=== PATIENT | male | born 1965 | race Caucasian/White ===

== ENCOUNTER 2022-08-25 08:35 | Emergency (ER) | payer BC, OTHER ==
[2022-08-25] MEDS ORDERED: KETOROLAC 30 MG/ML INJ ONE (09:03)
--- NOTE | 2022-08-25 09:58 | RAD REPORT ---
EXAM DESCRIPTION: Shoulder Right 2 View - 08/25/2022 9:24 am CLINICAL HISTORY: shoulder pain COMPARISON: None available TECHNIQUE: Internal and external rotation views of the right shoulder were obtained. FINDINGS: There is no fracture or dislocation. AC joint is normal in appearance. No acute or suspici ous findings. IMPRESSION: Negative two-view right shoulder examination.
[2022-08-25] MEDS ORDERED: MORPHINE 4 MG/ML SYR ONE (10:41)
[2022-08-25] MEDS ORDERED: dexAMETHasone 10 MG/ML VIAL ONE (10:41)
--- NOTE | 2022-08-25 10:52 | ER ---
Nurse's Notes [facility] Name: Ryan Escalona Age: 56 yrs Sex: Male : 1965 Arrival Date: 08/25/2022 Time: 08:35 Bed 13 Private MD: Diagnosis: Pain in right shoulder Presentation: 08/25 08:50 Chief complaint: Patient states: R arm pain that has been ongoing x 1 month. No known ss injury. Coronavirus screen: Client denies travel out of the [place] in the last 14 days. Ebola Screen: Patient denies exposure to infectious person. Patient denies travel to an Ebola-affected area in the 21 days before illness onset. Initial Sepsis Screen: Does the patient meet any 2 criteria? No. Patient's initial sepsis screen is negative. Does the patient have a suspected source of infection? No. Patient's initial sepsis screen is negative. Risk Assessment: Do you want to hurt yourself or someone else? Patient reports no desire to harm self or others. Onset of symptoms was July 26, 2022. 08:50 Method Of Arrival: Ambulatory ss 08:50 Acuity: JOSY 3 ss Historical: - Allergies: 08:52 No Known Allergies; ss - Home Meds: 08:52 None [Active]; ss - PMHx: 08:52 None; ss - PSHx: 08:52 BACK SX; ss - Immunization history:: Client reports having NOT received the Covid vaccine. - Social history:: Smoking status: Patient reports the use of cigarette tobacco products, smokes one-half pack cigarettes per day. Screenin:00 [facility] ED Fall Risk Assessment (Adult) History of falling in the last 3 months, kc6 including since admission No falls in past 3 months (0 pts) Confusion or Disorientation No (0 pts) Intoxicated or Sedated No (0 pts) Impaired Gait No (0 pts) Mobility Assist Device Used No (0 pt) Altered Elimination No (0 pt) Score/Fall Risk Level 0 - 2 = Low Risk Oriented to surroundings, Maintained a safe environment, Educated pt \T\ family on fall prevention, incl call for assistance when getting out of bed, Assessed \T\ reinforced patient's understanding of fall precautions, Hourly rounding (assess needs \T\ fall precautionary measures) done. Abuse screen: Denies threats or abuse. Denies injuries from another. Nutritional screening: No deficits noted. Tuberculosis screening: No symptoms or risk factors identified. Assessment: 09:00 General: Appears in no apparent distress. comfortable, Behavior is calm, cooperative, kc6 appropriate for age. Pain: Complains of pain in right arm. Neuro: Level of Consciousness is awake, alert, obeys commands, Oriented to person, place, time, situation, Appropriate for age. Cardiovascular: Capillary refill < 3 seconds. Respiratory: Airway is patent Trachea midline Respiratory effort is even, unlabored, Respiratory pattern is regular, symmetrical. GI: No signs and/or symptoms were reported involving the gastrointestinal system. : No signs and/or symptoms were reported regarding the genitourinary system. EENT: No signs and/or symptoms were reported regarding the EENT system. Derm: No signs and/or symptoms reported regarding the dermatologic system. Skin is intact, Skin is pink, warm \T\ dry. Musculoskeletal: No signs and/or symptoms reported regarding the musculoskeletal system. Circulation, motion, and sensation intact. Capillary refill < 3 seconds, Range of motion: intact in all extremities. 10:00 Reassessment: Patient appears in no apparent distress at this time. No changes from kc6 previously documented assessment. Patient and/or family updated on plan of care and expected duration. Pain level reassessed. Patient is alert, oriented x 3, equal unlabored respirations, skin warm/dry/pink. Vital Signs: 08:50 Pulse 67; Resp 17; Pulse Ox 100% on R/A; Weight 77.11 kg; Height 6 ft. 2 in. ; Pain ss 10/10; 08:53 BP 180 / 110; Temp 98; ss 09:10 BP 148 / 109; Pulse 69; Resp 18 S; Pulse Ox 100% on R/A; kc6 10:03 BP 164 / 100; Pulse 73; Resp 17 S; Pulse Ox 99% on R/A; kc6 08:50 Body Mass Index 21.83 (77.11 kg, 187.96 cm) ss 08:50 Pain Scale: Adult ss ED Course: 08:37 Patient arrived in ED. ts1 08:37 Floyd Arreola PA is PHCP. [facility] 08:38 Bar Rangel MD is Attending Physician. [facility] 08:51 Patient has correct armband on for positive identification. Placed in gown. Bed in low mm9 position. Call light in reach. Side rails up X 1. Warm blanket given. Client placed on continuous cardiac and pulse oximetry monitoring. NIBP monitoring applied. panel monitor on. Pulse ox on. NIBP on. 08:52 Triage completed. 08:52 Arm band placed on right wrist. 08:56 Jennifer Robins, RN is Primary Nurse. kc6 09:26 Shoulder Right (2 View) XRAY In Process Unspecified. EDMS 10:51 Nitish Oconnor MD is Referral Physician. [facility] 10:57 No provider procedures requiring assistance completed. Patient did not have IV access kc6 during this emergency room visit. Administered Medications: 08:58 Drug: Ketorolac IM 30 mg Route: IM; Site: right gluteus; 10:03 Follow up: Response: No adverse reaction kc6 10:41 Drug: morphine IM 4 mg Route: IM; Site: right deltoid; kc6 10:57 Follow up: Response: No adverse reaction; Pain is decreased; RASS: Alert and Calm (0) kc6 10:41 Drug: Dexamethasone IM 10 mg Route: IM; Site: left deltoid; kc6 10:57 Follow up: Response: No adverse reaction kc6 Medication: 10:58 VIS not applicable for this client. kc6 Outcome: 10:52 Discharge ordered by . [facility] 10:57 Discharged to home ambulatory. kc6 10:57 Condition: improved 10:57 Discharge instructions given to patient, Instructed on discharge instructions, follow up and referral plans. medication usage, Demonstrated understanding of instructions, follow-up care, medications, Prescriptions given X 3. 10:58 Patient left the ED. kc6 Signatures: Dispatcher [employer] EDMS Floyd Arreola PA PA jmm Blanchard, Shelby, RN RN Jennifer Robins RN RN Gemini Nicole mm9 Isabella Lyons PAS PAS ts1
--- NOTE | 2022-08-25 10:53 | EDPHYS ---
Physician Documentation [facility] Name: Ryan Escalona Age: 56 yrs Sex: Male : 1965 Arrival Date: 08/25/2022 Time: 08:35 Bed 13 Private MD: ED Physician Bar Rangel HPI: 08/25 08:44 This 56 yrs old Male presents to ER via Ambulatory with complaints of Arm Pain, jmm Shoulder Pain. 08:44 The patient or guardian complains of pain. Onset: The symptoms/episode began/occurred jmm gradually, 1 month(s) ago. Modifying factors: The symptoms are alleviated by nothing. the symptoms are aggravated by movement. This is a 56 year old male with a history of htn that presents to [facility] ED with complaints of worsening right shoulder pain beginning 2 weeks ago. Denies injury. . Historical: - Allergies: 08:52 No Known Allergies; ss - Home Meds: 08:52 None [Active]; ss - PMHx: 08:52 None; ss - PSHx: 08:52 BACK SX; ss - Immunization history:: Client reports having NOT received the Covid vaccine. - Social history:: Smoking status: Patient reports the use of cigarette tobacco products, smokes one-half pack cigarettes per day. ROS: 08:44 Constitutional: Negative for fever, chills, and weight loss, Respiratory: Negative for jmm shortness of breath, cough, wheezing, and pleuritic chest pain. 08:44 MS/extremity: Positive for pain. 08:44 All other systems are negative. Exam: 08:44 Constitutional: This is a well developed, well nourished patient who is awake, alert, jmm and in no acute distress. Head/Face: atraumatic. Eyes: EOMI, no conjunctival erythema appreciated ENT: Moist Mucus Membranes Neck: Trachea midline, Supple Chest/axilla: Normal chest wall appearance and motion. Cardiovascular: Regular rate and rhythm. 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 08:44 Skin: Appearance: Color: normal in color. 08:44 Neuro: Orientation: is normal, Mentation: is normal, Memory: is normal. 08:44 Psych: Behavior/mood is pleasant, cooperative. Vital Signs: 08:50 Pulse 67; Resp 17; Pulse Ox 100% on R/A; Weight 77.11 kg; Height 6 ft. 2 in. ; Pain ss 10/10; 08:53 BP 180 / 110; Temp 98; ss 09:10 BP 148 / 109; Pulse 69; Resp 18 S; Pulse Ox 100% on R/A; kc6 10:03 BP 164 / 100; Pulse 73; Resp 17 S; Pulse Ox 99% on R/A; kc6 08:50 Body Mass Index 21.83 (77.11 kg, 187.96 cm) ss 08:50 Pain Scale: Adult ss MDM: 08:44 Patient medically screened. [facility] 10:48 Data reviewed: vital signs, nurses notes. I considered the following discharge jmm prescriptions or medication management in the emergency department Medications were administered in the Emergency Department. See MAR. Counseling: I had a detailed discussion with the patient and/or guardian regarding: the historical points, exam findings, and any diagnostic results supporting the discharge/admit diagnosis, radiology results, the need for outpatient follow up, to return to the emergency department if symptoms worsen or persist or if there are any questions or concerns that arise at home. 08/25 08:49 Order name: Shoulder Right (2 View) XRAY; Complete Time: 09:59 [facility] Administered Medications: 08:58 Drug: Ketorolac IM 30 mg Route: IM; Site: right gluteus; ss 10:03 Follow up: Response: No adverse reaction kc6 10:41 Drug: morphine IM 4 mg Route: IM; Site: right deltoid; kc6 10:57 Follow up: Response: No adverse reaction; Pain is decreased; RASS: Alert and Calm (0) kc6 10:41 Drug: Dexamethasone IM 10 mg Route: IM; Site: left deltoid; kc6 10:57 Follow up: Response: No adverse reaction 6 Disposition: 11:10 Co-signature as Attending Physician, Bar Rangel MD I reviewed the patient's care rn provided by the Advanced Practice Provider and agree with the diagnosis and treatment plan. Disposition Summary: 08/25/22 10:52 Discharge Ordered Location: Home [facility] Condition: Stable jmm Diagnosis - Pain in right shoulder jmm Followup: jmm - With: Nitish Oconnor MD - When: 2 - 3 days - Reason: Recheck today's complaints, Continuance of care, Re-evaluation by your physician Discharge Instructions: - Discharge Summary Sheet [facility] - Shoulder Pain [facility] Forms: - Medication Reconciliation Form [facility] - Thank You Letter [facility] - Antibiotic Education [facility] - Prescription Opioid Use [facility] - [email or web address] [facility] Prescriptions: - Prednisone 20 mg Oral Tablet - take 3 tablets by ORAL route once daily for 5 days; 15 tablet; Refills: 0, [facility] Product Selection Permitted - Zanaflex 4 mg Oral Tablet - take 1 tablet by ORAL route every 8 hours As needed; 20 tablet; Refills: 0, [facility] Product Selection Permitted - Diclofenac Sodium 75 mg Oral Tablet Sustained Release - take 1 tablet by ORAL route 2 times per day; 30 tablet; Refills: 0, Product [facility] Selection Permitted Signatures: Dispatcher [employer] EDFloyd Burns PA PA jmm Nieto, Roman, MD MD rn Blanchard, Shelby, RN RN Jennifer Oneal RN RN kc6
[2022-08-25 11:04] VITALS: TEMP 98
[2022-08-25 11:09] VITALS: BP 164/100; O2SAT 99
== END 2022-08-25 10:58 | disposition home or self-care (01) ==
LOC: ER 08:35
DX: M25.511 Pain in right shoulder (principal); F17.210 Nicotine dependence, cigarettes, uncomplicated
CPT/HCPCS: 73030; 96372; 99285; J1100

== ENCOUNTER 2022-10-11 17:12 | Inpatient (IN) | payer OTHER ==
--- OUTSIDE RECORDS SUMMARY | 2022-10-11 17:45 | XMS REPORT | Continuity of Care Document ---
:1965 Author Organization [facility] t Address [address] [place] [address]. [address] [place] [address] Care Team Providers Name Role Phone ALY LOGAN Primary Care Physician Unavailable Lydia Herrera DO Attending Clinician LYDIA HERRERA Attending Clinician Unavailable GEE CALLEJAS Attending Clinician Unavailable LYDIA HERRERA Admitting Clinician Unavailable GEE CALLEJAS Admitting Clinician Unavailable Payers Payer Name Policy Type Policy Number Effective Date Expiration Date S ource Problems Condition Condition Condition Status Onset Resolution Last Treating Co mments Source Name Details Category Date Date Treatment Clinician Date Chest pain Chest pain Disease Active U nivers 9-20 ity of 00:00: [address] Hypertensi Hypertensi Disease Active U nivers on on [facility] Allergies, Adverse Reactions, Alerts Allergy Allergy Status Severity Reaction(s) Onset Inactive Treating Comm ents Source Name Type Date Date Clinician NO KNOWN Drug Active Univers ALLERGIE Class ity of [facility] Social History Social Habit Start Date Stop Date Quantity Comments Source Sex Assigned At [birth year] [facility] [place] 00:00:00 00:00:00 Medical Branch Smoking Status Start Date Stop Date Source Current every day smoker 2019-06-20 00:00:00 [facility] Medications Ordered Filled Start Stop Current Ordering Indication Dosage Frequency Signature Comments Components Source Medication Medication Date Date Medication? Clinician (SIG) Name Name ziprasidone 2020- No 20mg 20 mg, Uni vers (GEODON) 11-01 Intramuscu ity of injection 23:30: 22:29 lar[place]CE[place] 20 mg 00 :00 1 dose, Medical [facility] 11/01/20 Branch at 1830, DANI ziprasidone 2020- No 20mg 20 mg, [facility] vers (GEODON) 11-01 Intramuscu ity of injection 23:30: 22:29 lar, ONCE, [place] 20 mg 00 :00 1 dose, Medical [facility] 11/01/20 Branch at 1830, DANI diphenhydrA 2020- No 50mg 50 mg, [facility] vers MINE 11-01 Intramuscu ity of (BENADRYL) 21:30: 21:21 lar, ONCE, [place] injection 00 :00 1 dose, Medical 50 mg [facility] 11/01/20 Branch at 1630, STAT LORazepam 2020- No 2mg 2 mg, Univer s (ATIVAN) 11-01 Intramuscu ity of injection 2 21:30: 21:21 lar, ONCE, [place] mg 00 :00 1 dose, Medical 11/01/20 Branch at 1630, STAT haloperidol 2020- No 5mg 5 mg, Univ ers lactate 11-01 Intramuscu ity o f (HALDOL) 21:30: 21:21 [place] 5 00 :00 1 dose, Medic al mg e 11/01/20 Branch at 1630, STAT
Ch emical Restraint: Yes diphenhydrA 2020- No 50mg 50 mg, Uni vers MINE 11-01 Intramuscu ity of (BENADRYL) 21:30: 21:21 lar, ONCE, [place] injection 00 :00 1 dose, Medical 50 mg e 11/01/20 Branch at 1630, STAT LORazepam 2020- No 2mg 2 mg, Univer s (ATIVAN) 11-01 Intramuscu ity of injection 2 21:30: 21:21 lar, ONCE, [place] mg 00 :00 1 dose, Medical 11/01/20 Branch at 1630, STAT haloperidol 2020- No 5mg 5 mg, [facility] ers lactate 11-01 Intramuscu ity o f (HALDOL) 21:30: 21:21 [place] 5 00 :00 1 dose, Medic al mg [facility] 11/01/20 Branch at 1630, STAT
Ch emical Restraint: Yes OLANZapine 2020- No 10mg 10 mg, [facility] ers ZYDIS 11-01 Oral, ity of (ZyPREXA 18:45: 18:45 ONCE, 1 [place] ZYDIS) 00 :00 dose, [facility] Medical disintegrat 11/01/[address] [facility] ing tablet 1345, DANI 10 mg OLANZapine 2020- No 10mg 10 mg, [facility] ZYDIS 11-01 Oral, ity of (ZyPREXA 18:45: 18:45 ONCE, 1 [place] ZYDIS) 00 :00 dose, [facility] Medical disintegrat 11/01/[address] [facility] ing tablet 1345, DANI 10 mg hydroCHLORO 2020-0 Yes [id number] 25mg Take 1 Univers thiazide 25 4-26 tablet by ity of mg tablet 00:00: mouth [place] [address] every Medical morning. Branch hydroCHLORO 0 Yes [id number] 25mg Take 1 Univers thiazide 25 4-26 tablet by ity of mg tablet 00:00: mouth [place] [address] every Medical morning. Branch Vital Signs Vital Name Observation Time Observation Value Comments Source Systolic blood 2020-11-02 03:00:00 120 mm[Hg] [facility] Diastolic blood 2020-11-02 03:00:00 90 mm[Hg] [facility] Heart rate 2020-11-02 03:00:00 85 /[facility] Respiratory rate 2020-11-02 03:00:00 20 /min [facility] Oxygen saturation in 2020-11-02 03:00:00 100 /min [facility] Arterial blood by [facility] Pulse oximetry Branch Body temperature 2020-11-01 17:26:00 36.67 Jennifer [facility] Body weight 2020-11-01 17:26:00 79.379 kg [facility] BMI 2020-11-01 17:26:00 22.47 kg/m2 [facility] Procedures Procedure Date / Time Performing Clinician Source Performed URINE DRUG (IMMUNOASSAY) 2020-11-01 23:34:00 Lydia Herrera [facility] - COMPREHENSIVE DRUG Medical [facility] SCREEN URINALYSIS 2020-11-01 23:33:00 [facility] AMMONIA, PLASMA 2020-11-01 23:22:00 [facility] COVID-19 (ID NOW RAPID 2020-11-01 22:12:00 [facility] CT HEAD WO CONTRAST 2020-11-01 18:29:05 Lydia Herrera [facility] XR CHEST 1 VW 2020-11-01 17:59:34 [facility] CBC WITH DIFF 2020-11-01 17:42:00 [facility] COMP. METABOLIC PANEL 2020-11-01 17:41:00 Lydia Herrera [facility] ([id number]) [facility] SALICYLATE 2020-11-01 17:41:00 [facility] ETHANOL 2020-11-01 17:41:00 [facility] Encounters Start End Encounter Admission Attending Care Care Encounter Source Date/Time Date/Time Type Type Clinicians Facility Department ID 2022-10-11 2022-10-11 Outpatient SFA SFA [id number] [place] 15:58:56 15:58:56 [id number] [place] 2022-09-29 2022-09-29 Outpatient SFA SFA [id number] 11:15:14 11:15:14 [id number] F [place] 2022-09-12 2022-09-12 Outpatient SFA SFA [id number] [place] 08:04:11 08:04:11 [id number] F [place] 2022-09-05 2022-09-05 Outpatient SFA SFA [place] 17:03:03 17:03:03 [id number] F [place] 2022-08-30 2022-08-30 Outpatient [facility] Bran 08:52:02 08:52:02 [id number] F [place] 2022-08-29 2022-08-29 Outpatient [facility] Bran 14:57:18 14:57:18 [id number] F [place] 2020-11-01 2020-11-01 Emergency [facility] [id number] Univers 12:25:00 22:30:00 Lydia Falk [id number] i ty [facility] [id number] [facility] [id number] [address] 2020-11-01 2020-11-01 Emergency X [facility] ERT [id number] Univers 12:25:00 22:30:00 LYDIA paez [facility] 2019-06-20 2019-06-21 Emergency [facility] [id number] Univers 23:03:55 01:11:00 GEE jeannine [facility] Results Test Description Test Time Test Comments Results Result Comments Source HEMOGLOBIN A1c 2022-08-30 06:54:47 Test Item Value Reference Range Interpretation Comme nts HEMOGLOBIN A1c (test code = 94418) 5.3 % 4.2-5.6 VITAMIN D, 25 [id number] 06:33:05 Test Item Value Reference Range Interpretation Comments VITAMIN D, 25 20 NG/ML SEE BELOW L EFFECTIVE 03/05/2022, [place] (test code PLEASE NOTE NE W METHODOLOGY = 4958) IS [employer] EMILUMINESCENCE BINDING ASSAY. NOTE: 25-HYDROXYVITAM IN D ASSAY INCLUDES 25-HYD ROXYVITAMIN D2 AND D3. I NTERPRETIVE RANGES PED IATRIC (<17 YEARS) . . . . . . . . . . . NG/ML 20-100ADU LT: INSUFFICIENT . . . . . . . . . . . . . . NG/ML <20 SUBOP TIMAL . . . . . . . . . . . . . . . NG/ML 20-29 OPTIMAL . . . . . . . . . . . . . . . . . NG/ML 30-100 TSH, THIRD [id number] 06:32:16 Test Item Value Reference Range Interpretation Comments TSH, THIRD 0.182 UIU/ML 0.400-4.100 L UNLESS OTHERWI SE GENERATION (test INDICATED, ALL TESTING code = 2821) PERFORMED AT [facility] [place] [facility] [place] [address] [facility] ENCINAS DIRECTOR: Prieto VASQUEZ AHSAN NUMBER [id number] CAP ACCREDITATION N O. [id number] COMPREHENSIVE METABOLIC [id number] 04:40:53 Test Item Value Reference Range Interpretation Comments GLUCOSE (test code = 118 MG/DL 70-99 H 2216) BUN (test code = 17 MG/DL 6-20 2207) CREATININE (test 0.98 MG/DL 0.80-1.40 code = 2214) eGFR (2020 CKD-EPI) 91 ML/MIN/1.73 >60 (test code = 75371) CALC BUN/CREAT (test 17 RATIO 6-28 code = 2235) SODIUM (test code = 140 MEQ/L 547-761 3555) POTASSIUM (test code 4.2 MEQ/L 3.5-5.4 = 2227) CHLORIDE (test code 102 MEQ/L 95-107 = 221) CARBON DIOXIDE (test 28 MEQ/L 19-31 code = 2206) CALCIUM (test code = 8.8 MG/DL 8.5-10.5 2208) PROTEIN, TOTAL (test 6.7 G/DL 6.1-8.3 code = 2229) ALBUMIN (test code = 4.4 G/DL 3.5-5.2 2200) CALC GLOBULIN (test 2.3 G/DL 1.9-3.7 code = 2240) CALC A/G RATIO (test 1.9 RATIO 1.0-2.6 code = 2234) BILIRUBIN, TOTAL <0.2 MG/DL See_Comment [Automated message] (test code = 2207) The syste m which generated this result transmit mallorie reference range : <=1.2. The refe rence range was not u sed to interpret th is result as normal/abnormal . ALKALINE PHOSPHATASE 66 U/L 40-121 (test code = 2204) AST (test code = 15 U/L 50 2217) ALT (test code = 12 U/L 50 2218) LIPID [id number] 04:40:53 Test Item Value Reference Range Interpretation Comments CHOLESTEROL (test 156 MG/DL <200 code = 2210) TRIGLYCERIDES (test 123 MG/DL <150 code = 2232) HDL CHOLESTEROL (test 61 MG/DL >39 code = 2220) CALC LDL CHOL (test 75 MG/DL <100 NOTE: C ALCULATED LDL code = 2237) IS BASED ON MARIBELL-NEUMANN METHOD WHICHINCLUDES ADJUSTABLE TRIGLYCERIDE:VL DL CHOLESTEROL RAT IO.THIS FACTOR VARIES B Y MEASURED TRIGLY CERIDE AND NON-HDLCHOL ESTEROL CONCENTRATIONS WITH INCREASED CALCU LATED LDL SEENIN HIGH ER TRIGLYCERIDE OR LOWER NON-HDL SPECIME NS. FOR MOREINFORMATION , SEE CLIENT ANNOUNCE MENT AT [email or web address] RATIO LDL/HDL 1.23 RATIO <3.55 (test code = 223) CBC W/AUTO DIFF WITH [id number] 04:32:04 Test Item Value Reference Range Interpretation Comments WBC (test code = 15.3 K/UL 3.5-11.0 H 1001) RBC (test code = 4.51 M/UL 4.50-6.10 1002) HEMOGLOBIN (test code 13.4 G/DL 13.5-17.0 L = 1003) HEMATOCRIT (test code 40.7 % 40.0-51.0 = 1004) MCV (test code = 90.2 fL 80.0-99.0 1005) MCH (test code = 29.7 PG 25.0-33.0 1006) MCHC (test code = 32.9 G/DL 31.0-36.0 1007) RDW (test code = 12.2 % 11.5-15.0 1038) NEUTROPHILS (test 87.1 % code = 1008) LYMPHOCYTES (test 6.9 % code = 1010) MONOCYTES (test code 3.5 % = 1011) EOSINOPHILS (test 0.0 % code = 1012) BASOPHILS (test code 0.2 % = 1013) IMMATURE GRANULOCYTES 2.3 % (test code = 1036) NUCLEATED RBCS (test 0.0 /100 WBC'S See_Comment [Aut omated code = 1065) message] The sy stem which generated this result transmitted reference range : 0.0. The refere nce range was not u sed to interpret th is result as normal/abnormal . PLATELET COUNT (test 267 K/UL 130-400 code = 1015) ABSOLUTE NEUTROPHILS 13.33 K/UL 1.50-7.50 H (test code = 1066) ABSOLUTE LYMPHOCYTES 1.05 K/UL 1.00-4.00 (test code = 1067) ABSOLUTE MONOCYTES 0.53 K/UL 0.20-1.00 (test code = 1068) ABSOLUTE EOSINOPHILS 0.00 K/UL 0.00-0.50 (test code = 1040) ABSOLUTE BASOPHILS 0.03 K/UL 0.00-0.20 (test code = 1069) ABS IMMATURE 0.35 K/UL 0.00-0.10 H GRANULOCYTES (test code = 1020) ABS NUCLEATED RBCS 0.00 K/UL 0.00-0.11 (test code = 84740) URINE DRUG (IMMUNOASSAY) - COMPREHENSIVE DRUG [id number] 00:37:45 Test Item Value Reference Range Interpretation Comments AMPHET (test code = Negative Negative 5224713679) CRESCENCIO U (test code = Negative Negative 7836817227) BENZO U (test code = Negative Negative 5649328153) Cocaine Metabolite (test Negative Negative code = 5224143673) METHADONE (test code = Negative Negative 6735991970) OPIATES (test code = Negative Negative 6675500083) PCP (test code = Negative Negative 7732149442) THC (test code = Presumptive Positive Negative A 8737960097) ZHAO (test code = ZHAO) Urine Drug Cutoff Ranges Cocaine: ? 150 ng/mLBenzodiazepines: ? ? 200 ng/mLMethadone: ? 300 ng/mLAmphetamine: ? 1,000 ng/mLOpiates: ? 300 ng/mLCannabinoids: ?50 ng/mLPhencyclidine: ? ? ? 25 ng/mLBarbiturates: ?200 ng/mL The results are to be used only for medical (i.e., treatment) purposes. Unconfirmed screening results must not be used for non-medical purposes (e.g., employment testing, legal testing). Lab Interpretation (test Abnormal code = 68007-3) [facility] - COMPREHENSIVE DRUG [id number] 00:37:45 Test Item Value Reference Range Interpretation Comments AMPHET (test code = Negative Negative 4228106310) CRESCENCIO U (test code = Negative Negative 7395127983) BENZO U (test code = Negative Negative 0311719188) Cocaine Metabolite (test Negative Negative code = 4339707503) METHADONE (test code = Negative Negative 8031732599) OPIATES (test code = Negative Negative 8213115775) PCP (test code = Negative Negative 2516645156) THC (test code = Presumptive Positive Negative A 9731083008) ZHAO (test code = ZHAO) Urine Drug Cutoff Ranges Cocaine: ? 150 ng/mLBenzodiazepines: ? ? 200 ng/mLMethadone: ? 300 ng/mLAmphetamine: ? 1,000 ng/mLOpiates: ? 300 ng/mLCannabinoids: ?50 ng/mLPhencyclidine: ? ? ? 25 ng/mLBarbiturates: ?200 ng/mL The results are to be used only for medical (i.e., treatment) purposes. Unconfirmed screening results must not be used for non-medical purposes (e.g., employment testing, legal testing). Lab Interpretation (test Abnormal code = 13213-8) [facility] 00:12:19 Test Item Value Reference Range Interpretation Comments APPEARANCE (test code = Clear Clear 9126717040) COLOR (test code = Yellow Yellow 1950531441) PH (test code = 4.8-8.0 0699274289) SP GRAVITY (test code = 1.003-1.030 3877132817) GLU U QUAL (test code = Normal Normal 9253454904) BLOOD (test code = Negative Negative 1144648961) KETONES (test code = Negative Negative 9214237821) PROTEIN (test code = Negative Negative 2887-8) UROBILIN (test code = Normal Normal 4324276898) BILIRUBIN (test code = Negative Negative 2669450194) NITRITE (test code = Negative Negative 0447369778) LEUK DILLON (test code = Negative Negative 7654649412) RBC/HPF (test code = <1 See_Comment [Autom ated message] 1900460457) The system [employer] generated this result transmitted ref erence range: 0 - 3 HP F. The reference range was not used to int erpret this result as normal/abnormal . WBC/HPF (test code = <1 See_Comment [Autom ated message] 9898357544) The system [employer] generated this result transmitted ref erence range: 0 - 5 HP F. The reference range was not used to int erpret this result as normal/abnormal . BACTERIA (test code = Few Negative A 7476852978) MUCOUS (test code = Slight Negative LPF A 1788953562) HYAL CAST (test code = See_Comment H [Aut omated message] 3323024853) The system [employer] generated this result transmitted ref erence range: <=2 LPF. The reference range was not used to int erpret this result as normal/abnormal . Lab Interpretation (test Abnormal code = 71470-9) [facility] 00:12:19 Test Item Value Reference Range Interpretation Comments APPEARANCE (test code = Clear Clear 9151029869) COLOR (test code = Yellow Yellow 0221143075) PH (test code = 4.8-8.0 0125489988) SP GRAVITY (test code = 1.003-1.030 3808611337) GLU U QUAL (test code = Normal Normal 8811144362) BLOOD (test code = Negative Negative 1752305199) KETONES (test code = Negative Negative 6014803167) PROTEIN (test code = Negative Negative 2887-8) UROBILIN (test code = Normal Normal 6391766228) BILIRUBIN (test code = Negative Negative 9381322641) NITRITE (test code = Negative Negative 1596982332) LEUK DILLON (test code = Negative Negative 7922945412) RBC/HPF (test code = <1 See_Comment [Autom ated message] 2331298496) The system [employer] generated this result transmitted ref erence range: 0 - 3 HP F. The reference range was not used to int erpret this result as normal/abnormal . WBC/HPF (test code = <1 See_Comment [Autom ated message] 9160942953) The system [employer] generated this result transmitted ref erence range: 0 - 5 HP F. The reference range was not used to int erpret this result as normal/abnormal . BACTERIA (test code = Few Negative A 8236283751) MUCOUS (test code = Slight Negative LPF A 9286417135) HYAL CAST (test code = See_Comment H [Aut omated message] 8533253075) The system [employer] generated this result transmitted ref erence range: <=2 LPF. The reference range was not used to int erpret this result as normal/abnormal . Lab Interpretation (test Abnormal code = 93646-4) [facility], [id number] 23:44:01 Test Item Value Reference Range Interpretation Comments AMMONIA (test code = 9129255081) <9 9-33 L Lab Interpretation (test code = Abnormal 50498-2) [facility], [id number] 23:44:01 Test Item Value Reference Range Interpretation Comments AMMONIA (test code = 1601846699) <9 9-33 L Lab Interpretation (test code = Abnormal 04717-6) [facility]ID [facility])2020-11-01 22:42:30 Test Item Value Reference Range Interpretation Comments SARS-CoV-2 Rapid ID NOW Not Detected Not Detected (test code = 23714-5) ZHAO (test code = ZHAO) ID NOW COVID-19 Assay is an isothermal nucleic acid amplification test intended for the qualitative detection of nucleic acid from SARS-CoV-2 viral RNA in nasopharyngeal (STEEL SPAR OPERATOR) specimens. It is used under Emergency Use Authorization (EUA) by FDA. The limit of detection (LOD) of the assay is 125 Genome Equivalents/mL. A positive result is indicative of the presence of SARS-CoV-2 RNA. ?Clinical correlation with patient history and other diagnostic information is necessary to determine patient infection status. A negative (Not Detected) result does not preclude SARS-CoV-2 infection. In patients with clinical symptoms and other tests that are consistent with SARS-CoV-2 infection, negative results should be treated as presumptive negative and a new specimen should be tested with alternative PCR molecular test. Invalid: Please collect a new specimen for repeat patient testing if clinically indicated. Lab Interpretation Normal (test code = 71869-3) [facility]ID [facility])2020-11-01 22:42:30 Test Item Value Reference Range Interpretation Comments SARS-CoV-2 Rapid ID NOW Not Detected Not Detected (test code = 44606-6) ZHAO (test code = ZHAO) ID NOW COVID-19 Assay is an isothermal nucleic acid amplification test intended for the qualitative detection of nucleic acid from SARS-CoV-2 viral RNA in nasopharyngeal (STEEL SPAR OPERATOR) specimens. It is used under Emergency Use Authorization (EUA) by FDA. The limit of detection (LOD) of the assay is 125 Genome Equivalents/mL. A positive result is indicative of the presence of SARS-CoV-2 RNA. ?Clinical correlation with patient history and other diagnostic information is necessary to determine patient infection status. A negative (Not Detected) result does not preclude SARS-CoV-2 infection. In patients with clinical symptoms and other tests that are consistent with SARS-CoV-2 infection, negative results should be treated as presumptive negative and a new specimen should be tested with alternative PCR molecular test. Invalid: Please collect a new specimen for repeat patient testing if clinically indicated. Lab Interpretation Normal (test code = 58300-9) [facility] 19:02:08 Test Item Value Reference Range Interpretation Comments ALCOHOL (test code = <10 mg/dL 4666122026) ZHAO (test code = ZHAO) <10 Gmavtauq18-624 Toxic>100 Depression of SUPPLY ROOM CLERK>400 Fatalities Reported [facility] 19:02:08 Test Item Value Reference Range Interpretation Comments ALCOHOL (test code = <10 mg/dL 4466499694) ZHAO (test code = ZHAO) <10 Hexjwijc51-380 Toxic>100 Depression of SUPPLY ROOM CLERK>400 Fatalities Reported [facility]2021-[facility]07 19:01:57 Test Item Value Reference Range Interpretation Comments SALICYLATE (test code <10 mg/L = 0825100113) ZHAO (test code = ZHAO) Therapeutic Range: ? Analgesic and Antipyretic Use ? 20-100 mg/L ? ? Anti-Inflammatory Use ? 100-250 mg/L Toxic Range: ? Greater than 300 mg/L [facility]2021-[facility]07 19:01:57 Test Item Value Reference Range Interpretation Comments SALICYLATE (test code <10 mg/L = 9200389769) ZHAO (test code = ZHAO) Therapeutic Range: ? Analgesic and Antipyretic Use ? 20-100 mg/L ? ? Anti-Inflammatory Use ? 100-250 mg/L Toxic Range: ? Greater than 300 mg/L [facility]2021-09-07 19:01:19 Test Item Value Reference Range Interpretation Comments ACETAMINOP (test code = <10.0 10.0-30.0 L 4343896575) ZHAO (test code = ZHAO) Toxic: Greater than 200 ug/mL @ 4 hour post ingestion or greater than 50 ug/mL @ 12 hour post ingestion Lab Interpretation (test Abnormal code = 86713-1) [facility]2021-09-07 19:01:19 Test Item Value Reference Range Interpretation Comments ACETAMINOP (test code = <10.0 10.0-30.0 L 8939222059) ZHAO (test code = ZHAO) Toxic: Greater than 200 ug/mL @ 4 hour post ingestion or greater than 50 ug/mL @ 12 hour post ingestion Lab Interpretation (test Abnormal code = 43606-9) [facility] METABOLIC PANEL (95268)2020-11-01 19:00:02 Test Item Value Reference Range Interpretation Comments NA (test code = 137 mmol/L 135-145 1053863736) K (test code = 3.7 mmol/L 3.5-5.0 7123781860) CL (test code = 101 mmol/L 98-108 5734623774) CO2 TOTAL (test code = 26 mmol/L 23-31 4092037934) AGAP (test code = 2-16 1591165243) BUN (test code = 15 mg/dL 7-23 4299200731) GLUCOSE (test code = 113 mg/dL 70-110 H 4039381441) CREATININE (test code = 1.36 mg/dL 0.60-1.25 H 5745380154) TOTAL BILI (test code = 0.8 mg/dL 0.1-1.3 6344871989) CALCIUM (test code = 9.4 mg/dL 8.6-10.6 0594933462) T PROTEIN (test code = 7.0 g/dL 6.3-8.2 9425008233) ALBUMIN (test code = 4.2 g/dL 3.5-5.0 9000516235) ALK PHOS (test code = 61 U/L 34-122 2997280104) ALTv (test code = 12 U/L 5-50 1742-6) AST(SGOT) (test code = 20 U/L 13-40 1520496314) eGFR (test code = mL/min/1.73m2 5617186543) ZHAO (test code = ZHAO) Association of Glomerular Filtration Rate (GFR) and Staging of Kidney Disease* + --+ --+ ------+| GFR (mL/min/1.73 m2) ?| With Kidney Damage ?| ?Without Kidney Damage+ --------+ --------+ +| ?>90 ?| ?Stage one ?| ? Normal ?+ ---+ ---+ -------+| ?60-89 ?| ?Stage two ?| ? Decreased GFR ? + --+ --+ ------+| ?30-59 ?| ?Stage three ?| ? Stage three ? + --+ --+ ------+| ?15-29 ?| ?Stage four ? | ? Stage four ?+ ---+ ---+ -------+| ?<15 (or dialysis) ? ?| ?Stage five ? | ? Stage five ?+ ---+ ---+ -------+ *Each stage assumes the associated GFR level has been in effect for at least three months. ?Stages 1 to 5, with or without kidney disease, indicate chronic kidney disease. Notes: Determination of stages one and two (with eGFR >59mL/min/1.73 m2) requires estimation of kidney damage for at least three months as defined by structural or functional abnormalities of the kidney, manifested by either:Pathological abnormalities or Markers of kidney damage (including abnormalities in the composition of the blood or urine or abnormalities in imaging tests). Lab Interpretation Abnormal (test code = 22804-3) [facility]. METABOLIC PANEL (06905)2020-11-01 19:00:02 Test Item Value Reference Range Interpretation Comments NA (test code = 137 mmol/L 135-145 2074580005) K (test code = 3.7 mmol/L 3.5-5.0 8121192084) CL (test code = 101 mmol/L 98-108 6155059662) CO2 TOTAL (test code = 26 mmol/L 23-31 9209012640) AGAP (test code = 2-16 5118712360) BUN (test code = 15 mg/dL 7-23 0875232772) GLUCOSE (test code = 113 mg/dL 70-110 H 7836821102) CREATININE (test code = 1.36 mg/dL 0.60-1.25 H 1674356972) TOTAL BILI (test code = 0.8 mg/dL 0.1-1.0 3114213941) CALCIUM (test code = 9.4 mg/dL 8.6-10.6 1594375180) T PROTEIN (test code = 7.0 g/dL 6.3-8.2 2465369053) ALBUMIN (test code = 4.2 g/dL 3.5-5.0 4094205222) ALK PHOS (test code = 61 U/L 34-122 7377999382) ALTv (test code = 12 U/L 5-50 1742-6) AST(SGOT) (test code = 20 U/L 13-40 8081035729) eGFR (test code = mL/min/1.73m2 8646538871) ZHAO (test code = ZHAO) Association of Glomerular Filtration Rate (GFR) and Staging of Kidney Disease* + --+ --+ ------+| GFR (mL/min/1.73 m2) ?| With Kidney Damage ?| ?Without Kidney Damage+ --------+ --------+ +| ?>90 ?| ?Stage one ?| ? Normal ?+ ---+ ---+ -------+| ?60-89 ?| ?Stage two ?| ? Decreased GFR ? + --+ --+ ------+| ?30-59 ?| ?Stage three ?| ? Stage three ? + --+ --+ ------+| ?15-29 ?| ?Stage four ? | ? Stage four ?+ ---+ ---+ -------+| ?<15 (or dialysis) ? ?| ?Stage five ? | ? Stage five ?+ ---+ ---+ -------+ *Each stage assumes the associated GFR level has been in effect for at least three months. ?Stages 1 to 5, with or without kidney disease, indicate chronic kidney disease. Notes: Determination of stages one and two (with eGFR >59mL/min/1.73 m2) requires estimation of kidney damage for at least three months as defined by structural or functional abnormalities of the kidney, manifested by either:Pathological abnormalities or Markers of kidney damage (including abnormalities in the composition of the blood or urine or abnormalities in imaging tests). Lab Interpretation Abnormal (test code = 79193-0) [facility] [id number] 18:47:21 No acute cardiopulmonary abnormality. Preliminary Report Dictated by Resident: Darius Walton MD., have reviewed this study and agree with the abovereport.EXAM: XR CHEST 1 VW HISTORY: 54 years-old Male. "Daughter states that the patient does notdrink alcohol and does smoke marijuana and "may have smoked some lacedweed" ?States that the patient started to become confused 2 days ago andthe past 24 hours has became more confused, she also states that he has notslept in 2 days. ?" TECHNIQUE: Single frontal view of the chest. COMPARISON: Chest radiographs dated 06/20/2019 FINDINGS: The lungs are clear and well-expanded. No focal consolidation, pleuraleffusion, or pneumothorax is visualized. The cardiomediastinal silhouette is normal accounting for technique. Thethoracic aorta is tortuous and unfolded. No acute osseous abnormality is present. [facility], Radiant Results Inft User - 11/01/2020 1:48 PM CDT EXAM: XR CHEST 1 VWHISTORY:54 years-old Male. "Daughter states that the patient does notdrink alcohol and does smoke marijuana and "may have smoked some lacedweed" ?States that the patient started to become confused 2 days ago andthe past 24 hours has became more confused, she also states that he has notslept in 2 days. ?"TECHNIQUE: Single frontal view of the chest.COMPARISON: Chest radiographs dated 06/20/2019 FINDINGS:The lungs are clear and well-expanded. No focal consolidation, pleuraleffusion, or pneumothorax is visualized. The cardiomediastinal silhouette is normal accounting for technique. Thethoracic aorta is tortuousand unfolded.No acute osseous abnormality is present. IMPRESSIONNo acute cardiopulmonary abnormality.Preliminary Report Dictated by Resident: Darius Duong MD., have reviewed this study and agree with the abovereport.[facility] [id number] 18:47:21 No acute cardiopulmonary abnormality. Preliminary Report Dictated by Resident: Darius Walton MD., have reviewed this study and agree with the abovereport.EXAM: XR CHEST 1 VW HISTORY: 54 years-old Male. "Daughter states that the patient does notdrink alcohol and does smoke marijuana and "may have smoked some lacedweed" ?States that the patient started to become confused 2 days ago andthe past 24 hours has became more confused, she also states that he has notslept in 2 days. ?" TECHNIQUE: Single frontal view of the chest. COMPARISON: Chest radiographs dated 06/20/2019 FINDINGS: The lungs are clear and well-expanded. No focal consolidation, pleuraleffusion, or pneumothorax is visualized. The cardiomediastinal silhouette is normal accounting for technique. Thethoracic aorta is tortuous and unfolded. No acute osseous abnormality is present. [facility], Radiant Results Inft User - 11/01/2020 1:48 PM CDT EXAM: XR CHEST 1 VWHISTORY:54 years-old Male. "Daughter states that the patient does notdrink alcohol and does smoke marijuana and "may have smoked some lacedweed" ?States that the patient started to become confused 2 days ago andthe past 24 hours has became more confused, she also states that he has notslept in 2 days. ?"TECHNIQUE: Single frontal view of the chest.COMPARISON: Chest radiographs dated 06/20/2019 FINDINGS:The lungs are clear and well-expanded. No focal consolidation, pleuraleffusion, or pneumothorax is visualized. The cardiomediastinal silhouette is normal accounting for technique. Thethoracic aorta is tortuousand unfolded.No acute osseous abnormality is present. IMPRESSIONNo acute cardiopulmonary abnormality.Preliminary Report Dictated by Resident: Darius Duong MD., have reviewed this study and agree with the abovereport.[facility] [id number] 18:37:48 No acute intracranial abnormality Prominence of the intracranial vascularity is noted which can be due toretained intravascular contrast from prior procedure versus dehydrationwith resultant increased hematocrit. Clinical correlation advised. CT HEAD WO CONTRAST HISTORY: Male 54 years Mental status change, unknown cause COMPARISON: None TECHNIQUE: Routine CT head without contrast FINDINGS: The ventricles and cerebral sulci are normal in caliber and configuration.No hydrocephalus, midline shift or pathological extra- axial fluidcollection is present. The basal cisterns are unremarkable. No acute intracranial hemorrhage or mass effect is present. The gallagher-whitematter differentiation is preserved. Noparenchymal attenuation abnormalityis present. The intracranial vascularity is prominent. 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 The c alvarium and skull base are unremarkable. The mastoid air cells andvisualized paranasal air sinuses are clear. [facility], Radiant Results Inft User - 11/01/2020 1:[address] HEAD WO CONTRASTHISTORY: Male 54 years Mental status change, unknown cause COMPARISON: NoneTECHNIQUE: Routine CT head without contrastFINDINGS:The ventricles and cerebral sulci are normal in caliber and configuration.No hydrocephalus, midline shift or pathological extra-axial fluidcollection is present. The basal cisterns are unremarkable.No acute intracranial hemorrhage or mass effect is present. The gallagher-whitematter differentiation is preserved. No parenchymal attenuation abnormalityis present. The intracranial vascularity is prominent. 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 The mastoid air cells andvisualized paranasal air sinuses are clear.IMPRESSIONNoacute intracranial abnormalityProminence of the intracranial vascularity is noted which can be due toretained intravascular contrast from prior procedure versus dehydrationwith resultant increased hematocrit. Clinical correlation advised.[facility] 2020-11-01 18:37:48 No acute intracranial abnormality Prominence of the intracranial vascularity is noted which can be due toretained intravascular contrast from prior procedure versus dehydrationwith resultant increased hematocrit. Clinical correlation advised. CT HEAD WO CONTRAST HISTORY: Male 54 years Mental status change, unknown cause COMPARISON: None TECHNIQUE: Routine CT head without contrast FINDINGS: The ventricles and cerebral sulci are normal in caliber and configuration.No hydrocephalus, midline shift or pathological extra- axial fluidcollection is present. The basal cisterns are unremarkable. No acute intracranial hemorrhage or mass effect is present. The gallagher-whitematter differentiation is preserved. Noparenchymal attenuation abnormalityis present. The intracranial vascularity is prominent. 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 The c alvarium and skull base are unremarkable. The mastoid air cells andvisualized paranasal air sinuses are clear. [facility], Radiant Results Inft User - 11/01/2020 1:[address] HEAD WO CONTRASTHISTORY: Male 54 years Mental status change, unknown cause COMPARISON: NoneTECHNIQUE: Routine CT head without contrastFINDINGS:The ventricles and cerebral sulci are normal in caliber and configuration.No hydrocephalus, midline shift or pathological extra-axial fluidcollection is present. The basal cisterns are unremarkable.No acute intracranial hemorrhage or mass effect is present. The gallagher-whitematter differentiation is preserved. No parenchymal attenuation abnormalityis present. The intracranial vascularity is prominent. 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 The mastoid air cells andvisualized paranasal air sinuses are clear.IMPRESSIONNoacute intracranial abnormalityProminence of the intracranial vascularity is noted which can be due toretained intravascular contrast from prior procedure versus dehydrationwith resultant increased hematocrit. Clinical correlation advised.[facility] WITH [id number] 17:59:11 Test Item Value Reference Range Interpretation Comments WBC (test code = See_Comment H [Automated 2608-2) message] The sy stem which generated this result transmitted reference range : 4.20 - 10.70 10*3/?L. The reference range was not used to interpret this result as normal/abnormal . RBC (test code = See_Comment [Automated 314-8) message] The sy stem which generated this result transmitted reference range : 4.26 - 5.52 10*6/?L. The reference range was not used to interpret this result as normal/abnormal . HGB (test code = 15.9 g/dL 12.2-16.4 718-7) HCT (test code = 46.9 % 38.4-49.3 4544-3) MCV (test code = 89.2 fL 81.7-95.6 787-2) MCH (test code = 30.2 pg 26.1-32.7 785-6) MCHC (test code = 33.9 g/dL 31.2-35.0 786-4) RDW-SD (test code = 40.7 fL 38.5-51.6 68743-2) RDW-CV (test code = 12.4 % 12.1-15.4 788-0) PLT (test code = See_Comment [Automated 777-3) message] The sy stem which generated this result transmitted reference range : 150 - 328 10*3/ ?L. The reference r destinee was not used to interpret this result as normal/abnormal . MPV (test code = 11.5 fL 9.8-13.0 36117-7) NRBC/100 WBC (test See_Comment [Automat ed code = 9951291274) message] The system which generated this result transmitted reference range : 0.0 - 10.0 /100 WBCs. The refer ence range was not u sed to interpret th is result as normal/abnormal . NRBC x10^3 (test code <0.01 See_Comment [Auto mated = 3051419794) message] The s ystem which generated this result transmitted reference range : 10*3/?L. The reference range was not used to interpret this result as normal/abnormal . GRAN MAT (NEUT) % 64.5 % (test code = 770-8) IMM GRAN % (test code 0.40 % = 4743129306) LYMPH % (test code = 25.3 % 736-9) MONO % (test code = 8.2 % 5905-5) EOS % (test code = 1.1 % 713-8) BASO % (test code = 0.5 % 706-2) GRAN MAT x10^3(ANC) 7.13 10*3/uL 1.99-6.95 H (test code = 7348833628) IMM GRAN x10^3 (test 0.04 10*3/uL 0.00-0.06 code = 4684154735) LYMPH x10^3 (test code 2.80 10*3/uL 1.09-3.23 = 731-0) MONO x10^3 (test code 0.91 10*3/uL 0.36-1.02 = 742-7) EOS x10^3 (test code = 0.12 10*3/uL 0.06-0.53 711-2) BASO x10^3 (test code 0.05 10*3/uL 0.01-0.09 = 704-7) Lab Interpretation Abnormal (test code = 26458-8) [facility] WITH [id number] 17:59:11 Test Item Value Reference Range Interpretation Comments WBC (test code = See_Comment H [Automated 8790-2) message] The sy stem which generated this result transmitted reference range : 4.20 - 10.70 10*3/?L. The reference range was not used to interpret this result as normal/abnormal . RBC (test code = See_Comment [Automated 209-8) message] The sy stem which generated this result transmitted reference range : 4.26 - 5.52 10*6/?L. The reference range was not used to interpret this result as normal/abnormal . HGB (test code = 15.9 g/dL 12.2-16.4 718-7) HCT (test code = 46.9 % 38.4-49.3 4544-3) MCV (test code = 89.2 fL 81.7-95.6 787-2) MCH (test code = 30.2 pg 26.1-32.7 785-6) MCHC (test code = 33.9 g/dL 31.2-35.0 786-4) RDW-SD (test code = 40.7 fL 38.5-51.6 64855-9) RDW-CV (test code = 12.4 % 12.1-15.4 788-0) PLT (test code = See_Comment [Automated 777-3) message] The sy stem which generated this result transmitted reference range : 150 - 328 10*3/ ?L. The reference r destinee was not used to interpret this result as normal/abnormal . MPV (test code = 11.5 fL 9.8-13.0 93524-7) NRBC/100 WBC (test See_Comment [Automat ed code = 3451034136) message] The system which generated this result transmitted reference range : 0.0 - 10.0 /100 WBCs. The refer ence range was not u sed to interpret th is result as normal/abnormal . NRBC x10^3 (test code <0.01 See_Comment [Auto mated = 3334786352) message] The s ystem which generated this result transmitted reference range : 10*3/?L. The reference range was not used to interpret this result as normal/abnormal . GRAN MAT (NEUT) % 64.5 % (test code = 770-8) IMM GRAN % (test code 0.40 % = 8057186657) LYMPH % (test code = 25.3 % 736-9) MONO % (test code = 8.2 % 5905-5) EOS % (test code = 1.1 % 713-8) BASO % (test code = 0.5 % 706-2) GRAN MAT x10^3(ANC) 7.13 10*3/uL 1.99-6.95 H (test code = 9324236493) IMM GRAN x10^3 (test 0.04 10*3/uL 0.00-0.06 code = 3470728726) LYMPH x10^3 (test code 2.80 10*3/uL 1.09-3.23 = 731-0) MONO x10^3 (test code 0.91 10*3/uL 0.36-1.02 = 742-7) EOS x10^3 (test code = 0.12 10*3/uL 0.06-0.53 711-2) BASO x10^3 (test code 0.05 10*3/uL 0.01-0.09 = 704-7) Lab Interpretation Abnormal (test code = 73558-4) [facility]
--- NOTE | 2022-10-11 18:14 | RAD REPORT ---
EXAM DESCRIPTION: RAD - Hip Right 2 View - 10/11/2022 6:07 pm CLINICAL HISTORY: PAIN COMPARISON: No comparisons FINDINGS: No acute fracture. No malalignment. Mild right acetabular degenerative changes. IMPRESSION: No acute osseous abnormality involving the right hip.
--- NOTE | 2022-10-11 18:15 | RAD REPORT ---
EXAM DESCRIPTION: RAD - Chest Single View - 10/11/2022 6:07 pm CLINICAL HISTORY: ams COMPARISON: CHEST PA AND LAT 2 VIEW dated 11/14/2011 FINDINGS: Lines: None. Lungs: Increased coarsening of pulmonary interstitium, left greater than right. Pleural: No significant pleural effusions or pneumothorax. Cardiac: The heart size is within normal limits. Mediastinum: Within normal limits. Bones: No acute fractures. Other: None IMPRESSION: Increased coarsening of the pulmonary interstitium that could reflect an atypical infect ious process, or less likely edema.
[2022-10-11] MEDS ORDERED: ZIPRASIDONE MESYLA 20 MG/VIAL IM ONE ×2 (18:34→21:42)
[2022-10-11] MEDS ORDERED: WATER FOR INJ,STERILE 10 ML ONE (18:35)
[2022-10-11 18:47] LABS: Absolute Lymphocytes (CBC) 1.4 K/uL (0.7-4.9); Hematocrit 34.7 % (39.6-49.0); Lymphocytes % 15.9 % (15.3-44.8); Platelets 242 thou/uL (152-406)
[2022-10-11 18:49] LABS: Protime INR 1.1
--- NOTE | 2022-10-11 19:00 | RAD REPORT ---
EXAM DESCRIPTION: CT - Head Brain Wo Cont - 10/11/2022 6:46 pm CLINICAL HISTORY: ams COMPARISON: No comparisons TECHNIQUE: All CT scans are performed using dose optimization technique as appropriate and may inclu de automated exposure control or mA/KV adjustment according to patient size. FINDINGS: No intracranial hemorrhage, hydrocephalus or extra-axial fluid collection.No areas of brai n edema or evidence of midline shift. Right maxillary sinus mucous retention cyst. The calvarium is intact. IMPRESSION: No acute intracranial abnormality.
[2022-10-11 19:26] LABS: ALT/SGPT 18 U/L (16-61); AST/SGOT 25 U/L (15-37); Albumin 2.8 g/dL (3.4-5.0); Alkaline Phosphatase 45 U/L (45-117); BUN Blood Urea Nitrogen 15 mg/dL (7-18); Bicarbonate 31 mEq/L (21-32); Bilirubin Direct 0.2 mg/dL (0-0.2); Bilirubin Indirect, Calculated 0.3 mg/dL (0.2-0.8); Bilirubin Total 0.5 mg/dL (0.2-1.0); Creatine Phosphokinase 354 U/L (39-308); Glomerular Filtration Rate 61 ml/min (=/>90); Glucose Level 83 mg/dL (74-106); Protein, Total 6.9 g/dL (6.4-8.2); Sodium Level 137 mEq/L (136-145); Thyroid Stimulating Hormone 0.443 uIU/mL (0.358-3.740); Troponin High Sensitivity 3.7 pg/mL (<58.9)
--- NOTE | 2022-10-11 20:53 | EDPHYS ---
Physician Documentation [facility] Name: Ryan Escalona Age: 56 yrs Sex: Male : 1965 Arrival Date: 10/11/2022 Time: 17:12 Bed 19 Private MD: ED Physician Gilbert Reese HPI: 10/11 20:45 This 56 yrs old Male presents to ER via Wheelchair with complaints of Hallucinations, rt Fall Injury. 20:45 Patient presents to the ED with progressively worsening confusion, hallucinations, rt weakness with falls starting about 6 days ago. This coincides with his abrupt cessation of prednisone after taking 30 mg of it daily for 1 month. The patient reports mild pain to the right hip as well as wheezing. Patient was seen by primary care today, sent here for further eval. Denies other acute complaints at this time, symptoms are moderate severity, no other aggravating or alleviating factors. Historical: - Allergies: 17:34 No Known Allergies; cm10 - PMHx: 17:34 Hypertensive disorder; cm10 - PSHx: 17:34 back sx; cm10 - Immunization history:: Adult Immunizations. - Social history:: Smoking status: unknown. - Family history:: not pertinent. ROS: 20:45 Constitutional: Negative for fever, chills, and weight loss, Cardiovascular: Negative rt for chest pain, palpitations, and edema, Skin: Negative for injury, rash, and discoloration. 20:45 Respiratory: Positive for cough, wheezing. 20:45 Neuro: Positive for altered mental status, weakness. 20:45 Psych: Positive for auditory hallucinations, visual hallucinations. Exam: 20:45 Constitutional: This is a well developed, well nourished patient who is awake, alert, rt and in no acute distress. Head/Face: Normocephalic, atraumatic. Chest/axilla: Normal chest wall appearance and motion. Nontender with no deformity. No lesions are appreciated. Cardiovascular: Regular rate and rhythm with a normal S1 and S2. No gallops, murmurs, or rubs. Normal PMI, no JVD. No pulse deficits. Respiratory: Lungs have equal breath sounds bilaterally, clear to auscultation and percussion. No rales, rhonchi or wheezes noted. No increased work of breathing, no retractions or nasal flaring. Abdomen/GI: Soft, non-tender, with normal bowel sounds. No distension or tympany. No guarding or rebound. No evidence of tenderness throughout. Skin: Warm, dry with normal turgor. Normal color with no rashes, no lesions, and no evidence of cellulitis. 20:45 ECG was reviewed by the Attending Physician. Vital Signs: 17:30 BP 107 / 73; Pulse 101; Resp 18 S; Temp 97.8; Pulse Ox 95% on R/A; Weight 76.2 kg; cm10 Height 6 ft. 2 in. ; Pain 10/10; 18:30 BP 96 / 69; Pulse 87; Resp 18; Pulse Ox 94% on R/A; eh3 19:30 BP 92 / 80; Pulse 80; Resp 18; Pulse Ox 88% on R/A; eh3 20:30 BP 102 / 76; Pulse 86; Resp 18; Pulse Ox 96% on 3 lpm NC; eh3 21:30 BP 92 / 68; Pulse 86; Resp 18; Pulse Ox 98% on 3 lpm NC; eh3 23:15 BP 105 / 73; Pulse 91; Resp 18; Pulse Ox 100% on 3 lpm NC; mc5 17:30 Body Mass Index 21.57 (76.20 kg, 187.96 cm) cm10 17:30 Pain Scale: Adult cm10 MDM: 17:35 Patient medically screened. rt 20:45 Differential diagnosis: Pneumonia, adrenal insufficiency, electrolyte disturbance, CVA. rt Data reviewed: vital signs, nurses notes. Consideration of Admission/Observation Patient was admitted/placed on observation. Management of patient was discussed with the following: Hospitalist: Agrees to admit. I considered the following discharge prescriptions or medication management in the emergency department Medications were administered in the Emergency Department. See MAR. Independent interpretation of the following test(s) in the Emergency Department CT Scan: My interpretation is No hemorrhage seen on interpretation CT scan images. Care significantly affected by the following chronic conditions: Hypertension. Counseling: I had a detailed discussion with the patient and/or guardian regarding the historical points, exam findings, and any diagnostic results supporting the discharge/admit diagnosis, lab results, radiology results, the need for further work-up and treatment in the hospital. Response to treatment: the patient's symptoms have mildly improved after treatment. 10/11 17:43 Order name: Acetaminophen; Complete Time: 19:43 rt 10/11 17:43 Order name: Basic Metabolic Panel; Complete Time: 19:43 rt 08 17:43 Order name: CBC with Diff; Complete Time: 19:02 rt 08 17:43 Order name: ETOH Level; Complete Time: 19:43 rt 08 17:43 Order name: Hepatic Function; Complete Time: 19:43 rt 08 17:43 Order name: PT-INR; Complete Time: 19:02 rt 10/11 17:43 Order name: Ptt, Activated; Complete Time: 19:02 rt 08 17:43 Order name: Salicylate; Complete Time: 19:43 rt 08 17:43 Order name: Urinalysis w/ reflexes rt 10/11 17:43 Order name: Urine Drug Screen rt 10/11 17:43 Order name: Troponin High Sensitivity; Complete Time: 19:43 rt 08 17:43 Order name: CPK; Complete Time: 19:43 rt 08 17:43 Order name: TSH; Complete Time: 19:43 rt 08 18:25 Order name: Glucose, Ancillary Testing; Complete Time: 19:02 EDMS 10/11 17:43 Order name: Hip Right 2 View XRAY; Complete Time: 19:02 rt 08 17:43 Order name: Chest Single View XRAY; Complete Time: 19:02 rt 08 17:43 Order name: CT Head Brain wo Cont; Complete Time: 19:02 rt 08 17:43 Order name: EKG; Complete Time: 17:44 rt 08 17:43 Order name: EKG - Nurse/Tech; Complete Time: 18:14 rt 10/11 17:43 Order name: IV Saline Lock; Complete Time: 18:26 rt 08 17:43 Order name: Labs collected and sent; Complete Time: 18:26 rt 08 17:43 Order name: Suicide Screening ([place]); Complete Time: 18:36 rt 08 17:43 Order name: Accucheck; Complete Time: 18:16 rt EC:45 Rate is 94 beats/min. Rhythm is regular, Sinus Rhythm with PACs, Right bundle branch rt block. QRS [place] is Normal. QRS interval is normal. QT interval is normal. No Q waves. Interpreted by me. Administered Medications: 18:36 Drug: Geodon IM 10 mg Route: IM; Site: right deltoid; 3 20:00 Follow up: Response: No adverse reaction 3 21:15 Drug: NS 0.9% IV 1000 ml Route: IV; Rate: 1 bolus; Site: right antecubital; 3 23:18 Follow up: Response: No adverse reaction; IV Status: Completed infusion; IV Intake: ll3 1000ml 21:15 Drug: Rocephin IV 2 grams Route: IV; Rate: calculated rate; Site: right antecubital; 3 22:00 Follow up: Response: No adverse reaction; IV Status: Completed infusion; IV Intake: 20kdkk5 21:15 Drug: Solu-CORTEF IVP 50 mg Route: IVP; Site: right antecubital; 3 22:27 Follow up: Response: No adverse reaction 3 22:00 Drug: AZITHromycin IVPB 500 mg Route: IVPB; Infused Over: 1 hrs; Site: right 3 antecubital; 22:00 Drug: Potassium Chloride IV 20 mEq Route: IV; Rate: 40 calculated rate; Site: right 3 antecubital; 22:29 Drug: Geodon IM 10 mg Route: IM; Site: left deltoid; 3 23:18 Drug: NS 0.9% IV 1000 ml Route: IV; Rate: 1000 ml; Site: right antecubital; 3 Disposition Summary: 10/11/22 20:52 Hospitalization Ordered Hospitalization Status: Inpatient Admission rt Provider: Juanjose Gongora rt Location: Telemetry/[facility] (Inpatient) rt Condition: Fair rt Problem: new rt Symptoms: are unchanged rt Bed/Room Type: Standard rt Room Assignment: [facility](10/11/22 23:06) Diagnosis - Adrenal insufficiency rt - Pneumonia rt - Hypoxia rt - Hypokalemia rt - Altered mental status rt Forms: - Medication Reconciliation Form rt - SBAR form rt - Leadership Thank You Letter rt Critical care time excluding procedures: 20:45 Critical care time: Bedside Care: 30 minutes, Consultation: 5 minutes. Total time: 35 rt minutes Signatures: Dispatcher [employer] EDMS Se Narvaez FNP-C FNP-Cla1 Juliane Palma RN RN Deanna Ruggiero RN RN 3 Jennifer Larry RN RN 3 [place], GilbertMD MD rt Paulino Clarissa, RN RN cm10 Corrections: (The following items were deleted from the chart) 20:52 rt cg 23:06 21:49 206 [facility]
--- NOTE | 2022-10-11 20:53 | ER ---
Nurse's Notes [facility] Name: Ryan Escalona Age: 56 yrs Sex: Male : 1965 Arrival Date: 10/11/2022 Time: 17:12 Bed 19 Private MD: Diagnosis: Adrenal insufficiency;Pneumonia;Hypoxia;Hypokalemia;Altered mental status Presentation: 10/11 17:30 Chief complaint: Patient's son or daughter states: Pt has been having hallucinations cm10 and increased confusion over the last 6 days. Pt was seen at PCP today and was told to come to the ED for possible pneumonia. Pt was given Narcan at PCP due to possible taking too much pain medicine. Pt answering all questions appropriately in triage. Pt had a fall 2 days ago and is complaining of right hip pain. Coronavirus screen: Vaccine status: Patient reports being unvaccinated. Ebola Screen: Patient denies travel to an Ebola-affected area in the 21 days before illness onset. No symptoms or risks identified at this time. Initial Sepsis Screen: Does the patient meet any 2 criteria? No. Patient's initial sepsis screen is negative. Does the patient have a suspected source of infection? No. Patient's initial sepsis screen is negative. Risk Assessment: Do you want to hurt yourself or someone else? Patient reports no desire to harm self or others. Onset of symptoms was October 11, 2022. 17:30 Method Of Arrival: Wheelchair cm10 17:30 Acuity: JOSY 3 cm10 Historical: - Allergies: 17:34 No Known Allergies; cm10 - PMHx: 17:34 Hypertensive disorder; cm10 - PSHx: 17:34 back sx; cm10 - Immunization history:: Adult Immunizations. - Social history:: Smoking status: unknown. - Family history:: not pertinent. Screenin:45 [facility] ED Fall Risk Assessment (Adult) Score/Fall Risk Level 3 or more points = High eh3 Risk Oriented to surroundings, Maintained a safe environment, Educated pt \T\ family on fall prevention, incl call for assistance when getting out of bed, Assessed \T\ reinforced patient's understanding of fall precautions, Provided non-skid footwear, Hourly rounding (assess needs \T\ fall precautionary measures) done, Used ambulatory aids as needed (educated on \T\ assisted with), Utilized family, sitter, or virtual skein bander as indicated. Abuse screen: Denies threats or abuse. Denies injuries from another. Nutritional screening: No deficits noted. Tuberculosis screening: No symptoms or risk factors identified. Assessment: 17:45 General: Appears in no apparent distress. uncomfortable, Behavior is calm, cooperative, eh3 drowsy. Pain: Complains of pain in right hip. Neuro: Level of Consciousness is awake, obeys commands, lethargic, Oriented to person, place, time, situation. Cardiovascular: Capillary refill < 3 seconds Patient's skin is warm and dry. Respiratory: Airway is patent Respiratory effort is even, unlabored, Respiratory pattern is regular, symmetrical. GI: Abdomen is round non-distended. Derm: Skin is pink, warm \T\ dry. Musculoskeletal: Circulation, motion, and sensation intact. 18:30 Reassessment: Patient appears in no apparent distress at this time. Patient and/or 3 family updated on plan of care and expected duration. Pain level reassessed. Patient is alert, oriented x 3, equal unlabored respirations, skin warm/dry/pink. 19:30 Reassessment: Patient appears in no apparent distress at this time. Patient and/or 3 family updated on plan of care and expected duration. Pain level reassessed. Patient is alert, oriented x 3, equal unlabored respirations, skin warm/dry/pink. 20:30 Reassessment: Patient appears in no apparent distress at this time. Patient and/or 3 family updated on plan of care and expected duration. Pain level reassessed. Patient is alert, oriented x 3, equal unlabored respirations, skin warm/dry/pink. 21:30 Reassessment: Patient appears in no apparent distress at this time. Patient and/or 3 family updated on plan of care and expected duration. Pain level reassessed. Patient is alert, oriented x 3, equal unlabored respirations, skin warm/dry/pink. Vital Signs: 17:30 BP 107 / 73; Pulse 101; Resp 18 S; Temp 97.8; Pulse Ox 95% on R/A; Weight 76.2 kg; cm10 Height 6 ft. 2 in. ; Pain 10/10; 18:30 BP 96 / 69; Pulse 87; Resp 18; Pulse Ox 94% on R/A; eh3 19:30 BP 92 / 80; Pulse 80; Resp 18; Pulse Ox 88% on R/A; eh3 20:30 BP 102 / 76; Pulse 86; Resp 18; Pulse Ox 96% on 3 lpm NC; eh3 21:30 BP 92 / 68; Pulse 86; Resp 18; Pulse Ox 98% on 3 lpm NC; eh3 23:15 BP 105 / 73; Pulse 91; Resp 18; Pulse Ox 100% on 3 lpm NC; mc5 17:30 Body Mass Index 21.57 (76.20 kg, 187.96 cm) cm10 17:30 Pain Scale: Adult cm10 ED Course: 17:13 Patient arrived in ED. rg4 17:18 Gilbert Reese MD is Attending Physician. rt 17:34 Triage completed. cm10 17:35 Arm band placed on Patient placed. cm10 17:45 Patient has correct armband on for positive identification. Bed in low position. Call eh3 light in reach. Side rails up X2. Adult w/ patient. Provided Education on: Use of call bloom. Client placed on continuous cardiac and pulse oximetry monitoring. NIBP monitoring applied. Door closed. Noise minimized. Lights dimmed. Warm blanket given. Pillow given. 18:09 Hip Right 2 View XRAY In Process Unspecified. EDMS 18:09 Chest Single View XRAY In Process Unspecified. EDMS 18:14 Jennifer Larry, RN is Primary Nurse. eh3 18:30 Inserted saline lock: 20 gauge in right antecubital area, using aseptic technique. aw1 18:30 Initial lab(s) drawn, by me, sent to lab. aw1 18:47 CT Head Brain wo Cont In Process Unspecified. EDMS 19:34 Oxygen administration via nasal cannula \T\ 3L/min. eh3 20:51 Juanjose Gongora MD is Hospitalizing Provider. rt 22:00 Report given to Deanna Ruggiero RN. eh3 23:22 No provider procedures requiring assistance completed. Patient admitted, IV remains in ll3 place. Administered Medications: 18:36 Drug: Geodon IM 10 mg Route: IM; Site: right deltoid; eh3 20:00 Follow up: Response: No adverse reaction eh3 21:15 Drug: NS 0.9% IV 1000 ml Route: IV; Rate: 1 bolus; Site: right antecubital; eh3 23:18 Follow up: Response: No adverse reaction; IV Status: Completed infusion; IV Intake: ll3 1000ml 21:15 Drug: Rocephin IV 2 grams Route: IV; Rate: calculated rate; Site: right antecubital; 3 22:00 Follow up: Response: No adverse reaction; IV Status: Completed infusion; IV Intake: [id number] 21:15 Drug: Solu-CORTEF IVP 50 mg Route: IVP; Site: right antecubital; 3 22:27 Follow up: Response: No adverse reaction 3 22:00 Drug: AZITHromycin IVPB 500 mg Route: IVPB; Infused Over: 1 hrs; Site: right eh3 antecubital; 22:00 Drug: Potassium Chloride IV 20 mEq Route: IV; Rate: 40 calculated rate; Site: right eh3 antecubital; 22:29 Drug: Geodon IM 10 mg Route: IM; Site: left deltoid; 3 23:18 Drug: NS 0.9% IV 1000 ml Route: IV; Rate: 1000 ml; Site: right antecubital; 3 Medication: 23:23 VIS not applicable for this client. ll3 Intake: 22:00 IV: 50ml; Total: 50ml. eh3 23:18 IV: 1000ml; Total: 1050ml. ll3 Outcome: 20:52 Decision to Hospitalize by Provider. rt 23:22 Admitted to Med/surg accompanied by tech, via wheelchair, room 232, with chart, Report ll3 called to ELVIS Moore 23:22 Condition: stable 23:22 Instructed on the need for admit, Demonstrated understanding of instructions. 23:23 Patient left the ED. ll3 Signatures: Dispatcher [employer] Anisa Acosta rg4 Deanna Ruggiero RN RN ll3 Jennifer Larry RN RN eh3 Gilbert Reese MD MD rt Patricia Bob RN RN cm10 Kristina Huang aw1 Doris Delaney mc5 Corrections: (The following items were deleted from the chart) 17:37 17:30 Chief complaint: Patient's son or daughter states: Pt has been having cm10 hallucinations and increased confusion over the last 6 days. Pt was seen at PCP today and was told to come to the ED for possible pneumonia. Pt was given Narcan at PCP due to possible taking too much pain medicine. Pt answering all questions appropriately in triage. Pt had a fall 2 days ago and is complaining of left hip pain. cm10 21:43 19:30 BP 92 / 80; Pulse 80bpm; Resp 18bpm; Pulse Ox 89% RA; eh3 eh3
--- NOTE | 2022-10-11 21:17 | P.HP ---
Certification for Inpatient Patient admitted to: Inpatient With expected LOS: >2 Midnights Patient will require the following post-hospital care: None Practitioner: I am a practitioner with admitting privileges, knowledge of patient current condition, hospital course, and medical plan of care. Services: Services provided to patient in accordance with Admission requirements found in Title 42 Section 412.3 of the Code of Federal Regulations Patient History Date of Service: 10/11/22 Reason for admission: Pneumonia, hypokalemia History of Present Illness: 56-year-old male with history of hypertension, back pain presents to the emergency department after being told by his PCP to come here to evaluate for possible pneumonia, he was given Narcan at his primary care doctor's office for possibly taking too much pain medicine, daughter also reports that he has been more confused over the course of last 6 days. He recently finished a 30-day course of prednisone 30 mg approximately 7 days ago, patient is a poor historian, unclear why he was taking the prednisone presumably it was prescribed for back pain. He was evaluated in the emergency department he was noted to mildly hypoxic room air sats 89% other labs significant for mild hypokalemia, chest x-ray showed suspected pneumonia CT head negative for acute findings x-ray of the right hip was also performed which was negative for acute findings. ED provider wishes to admit for pneumonia, hypokalemia. - Past Medical/Surgical History -: Hypertension Past Surgical History: Unable to obtain Psychosocial/ Personal History: Patient lives at home with family, unemployed - Family History Family History: Reviewed- Non-Contributory - Social History Smoking Status: Current every day smoker Counseled patient to stop smoking for: less than 10 minutes Smoking therapy provided: No (Patient declined) Alcohol use: No CD- Drugs: No Caffeine use: Yes Review of Systems 10-point ROS is otherwise unremarkable Respiratory: Cough, Shortness of Breath Cardiovascular: Chest Pain Musculoskeletal: Back Pain Physical Examination - Physical Exam General: Alert, In no apparent distress, Oriented x3 HEENT: Atraumatic, PERRLA, Mucous membr. moist/pink, EOMI, Sclerae nonicteric Neck: Supple, 2+ carotid pulse no bruit, No LAD, Without JVD or thyroid abnormality Respiratory: Clear to auscultation bilaterally, Normal air movement Cardiovascular: No edema, Regular rate/rhythm, Normal S1 S2 Capillary refill: <2 Seconds Gastrointestinal: Normal bowel sounds, No tenderness Musculoskeletal: No tenderness Integumentary: No rashes Neurological: Normal speech, Normal strength at 5/5 x4 extr, Normal tone, Normal affect - Studies Laboratory Data (last 24 hrs) 10/11/22 10/11/22 10/11/22 18:26 18:26 18:26 WBC 8.60 Hgb 11.6 L Hct 34.7 L Plt Count 242 PT 12.1 INR 1.10 APTT 35.8 Sodium 137 Potassium 3.0 L BUN 15 Creatinine 1.37 H Glucose 83 Total Bilirubin 0.5 AST 25 ALT 18 Alkaline Phosphatase 45 Assessment and Plan - Plan Assessment: Acute hypoxic respiratory failure secondary to pneumonia Metabolic encephalopathy Hypokalemia Hypertension Tobacco abuse Plan: Acute hypoxic respiratory failure secondary to pneumonia Continue antibiotics Rocephin/Zithromax. Wean off of nasal cannula. Metabolic encephalopathy Unclear etiology, possibly related to pneumonia, patient also was reportedly on multiple medications for back pain including Soma and others. He was on a 30- day course of 30 mg prednisone as well which she finished approximately 7 days ago, has been confused last 6 days. We will start back on steroids at reduced dose of 20 mg. Monitor for signs of resolution, continue supportive care. Hypokalemia Replaced in ED, protocol in place. Hypertension Continue home medication. Tobacco abuse Declined NicoDerm patch. Counseled on need for cessation. DVT PPX: Lovenox Code status: Full Discharge Plan: Home Plan to discharge in: 48 Hours - Advance Directives Does patient have a Living Will: No Does patient have a Durable POA for Healthcare: No - Code Status/Comfort Care Code Status Assessed: Yes (Full code) Critical Care: No Time Spent Managing Pts Care (In Minutes): 55
[2022-10-11] MEDS ORDERED: CEFTRIAXONE 2000 MG/VIAL ONE (21:41)
[2022-10-11] MEDS ORDERED: HYDROCORTISONE SUC 100 MG INJ ONE (21:41)
[2022-10-11] MEDS ORDERED: AZITHROMYCIN 500 MG INJ IVPB ONE (21:42)
[2022-10-11] MEDS ORDERED: NA CHLORIDE 0.9% 50 ML ONE (21:42)
[2022-10-11] MEDS ORDERED: NA CHLORIDE 0.9% 1,000 ML ONE ×2 (21:42→23:22)
[2022-10-11] MEDS ORDERED: NA CHLORIDE 0.9% 250 ML ONE (21:42)
[2022-10-11] MEDS ORDERED: KCL 20 MEQ/100 mL IVPB 100 ML IV ONE (21:42)
[2022-10-12] MEDS ORDERED: ONDANSETRON 4 MG/2 ML VIAL IV PRN
[2022-10-12 01:02] LABS: Barbiturates NEGATIVE (NEGATIVE); Benzodiazepines POSITIVE (NEGATIVE); Cocaine NEGATIVE (NEGATIVE); METHAMPHETAM NEGATIVE (NEGATIVE); Methadone NEGATIVE (NEGATIVE); Opiates NEGATIVE (NEGATIVE); Phencyclidine NEGATIVE (NEGATIVE); Specific Gravity 1.013 (1.005-1.030); THC Cannibis POSITIVE (NEGATIVE); Urine Bilirubin NEGATIVE (Negative); Urine Blood Negative (Negative); Urine Clarity Clear (Clear); Urine Color Yellow (Yellow); Urine Glucose NEGATIVE (Negative); Urine Protein NEGATIVE (Negative); Urine Urobilinogen Normal (Normal)
[2022-10-12 03:05] LABS: Absolute Lymphocytes (CBC) 0.7 K/uL (0.7-4.9); Lymphocytes % 8.9 % (15.3-44.8); MCV 88.8 fL (80-100); MPV 9.3 fL (7.6-11.3); Platelets 208 thou/uL (152-406); RBC Red Blood Cell Count 3.38 M/uL (4.33-5.43)
[2022-10-12 03:07] VITALS: BMI 22.2
[2022-10-12 03:23] LABS: Potassium 4.4 mEq/L (3.5-5.1); Thyroid Stimulating Hormone 0.175 uIU/mL (0.358-3.740)
[2022-10-12] MEDS: ENOXAPARIN 40 MG/0.4 ML SQ SCH (08:22)
[2022-10-12] MEDS: predniSONE 20 MG TAB PO SCH (08:22)
--- NOTE | 2022-10-12 11:34 | P.PN ---
Subjective Date of Service: 10/12/22 Chief Complaint: Pneumonia, hypokalemia Subjective: No new changes Physical Examination - Vital Signs Temperature: 97.2 F Blood Pressure: 98/63 Pulse: 76 Respirations: 18 Pulse Ox (%): 97 - Physical Exam General: Alert, Oriented x3 HEENT: Atraumatic, Normocephalic Respiratory: Diminished Cardiovascular: Normal S1 S2, Abnormal S3 Gastrointestinal: Soft and benign Neurological: Normal speech - Studies Laboratory Data (last 24 hrs) 10/11/22 10/11/22 10/11/22 18:26 18:26 18:26 WBC 8.60 Hgb 11.6 L Hct 34.7 L Plt Count 242 PT 12.1 INR 1.10 APTT 35.8 Sodium 137 Potassium 3.0 L BUN 15 Creatinine 1.37 H Glucose 83 Total Bilirubin 0.5 AST 25 ALT 18 Alkaline Phosphatase 45 Assessment And Plan - Plan Acute hypoxic respiratory failure secondary to pneumonia Metabolic encephalopathy Hypokalemia Hypertension Tobacco abuse Acute hypoxic respiratory failure secondary to pneumonia Still has some reduced air entry issues. we will continue empiric antibiotics of Rocephin and Azithromycin. we will wean off of nasal cannula oxygen as tolerated. Metabolic encephalopathy Still deemed due to medication side effect. still having hallucinations as per family. we will review opioid use hx. we will consult psychiatry for recommendations. Hypokalemia replete as per protocol. Hypertension we will continue home medications anf follow trend of vitals closely. . Tobacco abuse we will continue to encourage tobacco use cessation. DVT PPX: Lovenox Code status: Full Discharge Plan: Home Plan to discharge in: 48-72hrs.
[2022-10-12] MEDS: NA CHLORIDE 0.9% 1,000 ML IV SCH ×3 (12:22→23:50)
--- NOTE | 2022-10-12 13:56 | EKG ---
Test Date: 2022-10-11 Test Time: 18:09:24 [employer] Supervisor: KIT MEASUREMENT RESULTS: Intervals: Rate: 94 DC: 190 QRSD: 108 QT: 368 QTc: 460 [place]: P: 64 DC: 190 QRS: 66 T: 65 INTERPRETIVE STATEMENTS: Sinus rhythm with premature atrial complexes Incomplete right bundle branch block Borderline ECG Compared to ECG 05/22/2004 17:40:00 Atrial premature complex(es) now present Incomplete right bundle-branch block now present Sinus tachycardia no longer present Atrial abnormality no longer present ST (T wave) deviation no longer present Electronically Signed On 10-12-22 13:55:15 CDT by Colt Burden
[2022-10-12] MEDS ORDERED: AZITHROMYCIN IV 500 MG in NA CHLORIDE 0.9% 250 ML IVPB SCH (20:00)
[2022-10-12] MEDS ORDERED: NA CHLORIDE 0.9% 250 ML ONE (20:48)
[2022-10-12 21:00] VITALS: O2SAT 95
[2022-10-12] MEDS ORDERED: CEFTRIAXONE 1,000 MG in NA CHLORIDE 0.9% 50 ML IVPB SCH (21:00)
[2022-10-13 03:16] LABS: Absolute Lymphocytes (CBC) 2.1 K/uL (0.7-4.9); Lymphocytes % 20.7 % (15.3-44.8); MCV 88.9 fL (80-100); MPV 9.1 fL (7.6-11.3); Platelets 231 thou/uL (152-406); RBC Red Blood Cell Count 3.37 M/uL (4.33-5.43)
[2022-10-13 03:28] LABS: Potassium 3.8 mEq/L (3.5-5.1)
[2022-10-13] MEDS: ENOXAPARIN 40 MG/0.4 ML SQ SCH (08:35)
[2022-10-13] MEDS: predniSONE 20 MG TAB PO SCH (08:35)
--- NOTE | 2022-10-13 09:30 | P.DS ---
Admission Date: 10/11/22 Discharge Date: 10/13/22 Disposition: ROUTINE DISCHARGE Discharge Condition: GOOD Reason for Admission: Pneumonia, hypokalemia Brief History of Present Illness: 56-year-old male with history of hypertension, back pain presents to the emergency department after being told by his PCP to come here to evaluate for possible pneumonia, he was given Narcan at his primary care doctor's office for possibly taking too much pain medicine, daughter also reports that he has been more confused over the course of last 6 days. He recently finished a 30-day course of prednisone 30 mg approximately 7 days ago, patient is a poor historian, unclear why he was taking the prednisone presumably it was prescribed for back pain. He was evaluated in the emergency department he was noted to mildly hypoxic room air sats 89% other labs significant for mild hypokalemia, chest x-ray showed suspected pneumonia CT head negative for acute findings x-ray of the right hip was also performed which was negative for acute findings. ED provider wishes to admit for pneumonia, hypokalemia. Hospital Course: On admission patient was found to be significantly distressed and having issues with hallucinations. He was started on antibiotic for pneumonia and was put on supplemental oxygen. He also had issues with significant lethargy and there was concern for aspiration pneumonia. Patient was started on steroid therapy and he overall improved significantly by the third day of admission patient's mentation cleared significantly. His medications were reviewed and adjustments were made. He was discharged home on oral anti infective agent of Augmentin, oral steroid therapy with prednisone 20 mg daily and he was instructed to follow-up with his primary care doctor for appropriate care. He will also be referred to psychiatry for management of significant issues with medication use/mental health related issues. Vital Signs/Physical Exam: Temp Pulse Resp BP Pulse Ox 97.8 F 76 18 99/71 92 10/13/22 04:00 10/13/22 04:00 10/13/22 04:00 10/13/22 04:00 10/13/22 04:00 General: Alert, Oriented x3 HEENT: Atraumatic, Normocephalic Neck: Supple Respiratory: Normal air movement Cardiovascular: Regular rate/rhythm, Normal S1 S2 Gastrointestinal: Soft and benign Musculoskeletal: No swelling Neurological: Normal speech, Normal strength at 5/5 x4 extr Laboratory Data at Discharge: WBC 10.10 thou/uL (4.3-10.9) 10/13/22 02:41 Hgb 10.2 g/dL (13.6-17.9) L 10/13/22 02:41 Hct 30.0 % (39.6-49.0) L 10/13/22 02:41 Plt Count 231 thou/uL (152-406) 10/13/22 02:41 PT 12.1 SECONDS (9.5-12.5) 10/11/22 18:26 INR 1.10 10/11/22 18:26 APTT 35.8 SECONDS (24.3-36.9) 10/11/22 18:26 Sodium 141 mEq/L (136-145) D 10/13/22 02:41 Potassium 3.8 mEq/L (3.5-5.1) D 10/13/22 02:41 BUN 11 mg/dL (7-18) 10/13/22 02:41 Creatinine 0.87 mg/dL (0.70-1.30) 10/13/22 02:41 Glucose 106 mg/dL (74-106) 10/13/22 02:41 Total Bilirubin 0.5 mg/dL (0.2-1.0) 10/11/22 18:26 AST 25 U/L (15-37) 10/11/22 18:26 ALT 18 U/L (16-61) 10/11/22 18:26 Alkaline Phosphatase 45 U/L (45-117) 10/11/22 18:26 Triglycerides 93 mg/dL (<150) 10/12/22 02:10 Cholesterol 112 mg/dL (<200) 10/12/22 02:10 HDL Cholesterol 29 mg/dL (40-60) L 10/12/22 02:10 Cholesterol/HDL Ratio 3.86 10/12/22 02:10 Home Medications: Amitriptyline [Elavil*] 50 mg PO BEDTIME 10/12/22 Amlodipine [Norvasc*] 10 mg PO DAILY 10/12/22 Buprenorphine HCl/Naloxone HCl [Suboxone 8 mg-2 mg Tablet] 2.5 tab PO DAILY 10/12/22 Losartan Potassium 100 mg PO DAILY 10/12/22 Amox/Clavulanate [Augmentin 875-125 Tab] 1 each PO BID #14 tab 10/13/22 Ramelteon 8 mg PO BEDTIME PRN PRN #14 tab 10/13/22 predniSONE [Prednisone*] 20 mg PO DAILY #7 tab 10/13/22 New Medications: Amox/Clavulanate [Augmentin 875-125 Tab] 1 each PO BID #14 tab predniSONE [Prednisone*] 20 mg PO DAILY #7 tab Ramelteon 8 mg PO BEDTIME PRN PRN #14 tab PRN Reason: Insomnia Diet: Regular Activity: Ad neftali Followup: Melo Tay MD [ACTIVE - CAN ADMIT] - Ari Izaguirre MD [OUTSIDE PHYSICIAN] -
[2022-10-13 10:43] VITALS: BP 113/72; TEMP 97.4
== END 2022-10-13 10:45 | disposition home or self-care (01) | DRG 177 ==
LOC: ER 17:12 → ERHOLD 21:03 → 2ND 21:58
PROVIDERS: ADMIT Internal Medicine Nephrology; ATTEND Internal Medicine Nephrology
DX: J69.0 Pneumonitis due to inhalation of food and vomit (principal); G93.41 Metabolic encephalopathy; J96.01 Acute respiratory failure with hypoxia; E27.40 Unspecified adrenocortical insufficiency; R44.3 Hallucinations, unspecified; M25.551 Pain in right hip; E87.6 Hypokalemia; F17.200 Nicotine dependence, unspecified, uncomplicated; Z71.6 Tobacco abuse counseling; Z56.0 Unemployment, unspecified; Z79.52 Long term (current) use of systemic steroids; Z79.899 Other long term (current) drug therapy
CPT/HCPCS: 36415; 70450; 71045; 80048; 80061; 80076; 80143; 80179; 80307; 81003; 82077; 82550; 82947; 84439; 84443; 84484; 85025; 85610; 85730; 93005; 96361; 96365; 96372; 96375; 99285; J0696; J1650; J1720; J3480; J3486; J7030; J7050; J7512